=== PATIENT | female | born 1965 | race Two or more races ===

== ENCOUNTER 2019-07-11 13:59 | Inpatient (IN) | payer BC ==
[~2019-07-11] VITALS: Ht 165.1 cm; Wt 62.6 kg
--- NOTE | 2019-07-11 14:44 | NUR ---
PT STATES ON FRIDAY SHE STARTED DEVELOPING ERYTHEMA/BUMPS RIGHT BREAST, RIGHT PELVIC AREA, RIGHT LABIA, RIGHT THIGH
--- NOTE | 2019-07-11 15:45 | NUR ---
WHILE PA AT BEDSIDE, PULSE CHECKED AND NOTED TO BE 79
--- NOTE | 2019-07-11 15:45 | NUR ---
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
[2019-07-11] MEDS ORDERED: CLINDAMYCIN PMX 600MG/50ML 50 ML IV ONE (16:00)
[2019-07-11 16:05] LABS: BASOPHILS # (AUTO) 0.01 x10^3/uL (0-0.1); BASOPHILS % (AUTO) 0 % (0-1); EOSINOPHILS # (AUTO) 0.05 x10^3/uL (0-0.4); EOSINOPHILS % (AUTO) 0 % (1-7); LYMPHOCYTES # (AUTO) 1.34 x10^3/uL (1-3.4); LYMPHOCYTES % (AUTO) 11 % (22-44); MD NO; MEAN CORPUSCULAR HEMOGLOBIN 32.2 pg (27.0-34.8); MEAN CORPUSCULAR HGB CONC 34.1 g/dL (32.4-35.8); MEAN CORPUSCULAR VOLUME 94.6 fL (80-100); MEAN PLATELET VOLUME 8.3 fL (7.4-10.4); MONOCYTES # (AUTO) 0.63 x10^3/uL (0.2-0.8); MONOCYTES % (AUTO) 5 % (2-9); NEUTROPHILS # (AUTO) 10.37 x10^3/uL (1.8-6.8); NEUTROPHILS % (AUTO) 84 % (42-75); PLATELET COUNT 195 x10^3/uL (130-400); RED BLOOD COUNT 4.61 x10^6/uL (3.82-5.3); RED CELL DISTRIBUTION WIDTH 12.6 % (9.6-15.2)
[2019-07-11] MEDS ORDERED: CLINDAMYCIN PMX 600MG/50ML 50 ML ONE (16:12)
[2019-07-11 16:15] LABS: ALBUMIN 3.7 g/dL (3.4-5.0); ANION GAP 8 mmol/L (5-15); CALCIUM 8.8 mg/dL (8.5-10.1); CHLORIDE 107 mmol/L (98-107); CREATININE 1.17 mg/dL (0.55-1.02)
--- NOTE | 2019-07-11 16:21 | NUR ---
IV ESTABLISHED WITH ANTIBIOTICS INFUSING
[2019-07-11] MEDS ORDERED: METRONIDAZOLE PMX 500MG/100ML 100 ML ONE (17:12)
[2019-07-11] MEDS: METRONIDAZOLE PMX 500MG/100ML 100 ML IV ONE ×2 (17:24→17:25)
--- NOTE | 2019-07-11 18:07 | NUR ---
MD AWARE OF CURRENT BP AND ORDER RECEIVED FOR IV BOLUS. INFUSING NOTED ON THE MAR
--- NOTE | 2019-07-11 18:07 | NUR ---
POTENTIAL OF SEPSIS DISCUSSED WITH MD WITH ORDERS RECEIVED FOR LACTIC, BLOOD CULTURES AND IV FLUIDS.
--- NOTE | 2019-07-11 18:20 | NUR ---
PROVIDER DISCUSSING WITH PT ADMISSION TO HOSPITAL FOR SEPSIS PROTOCOL. PT AGREES TO SAME
[2019-07-11] MEDS ORDERED: SODIUM CHLORIDE 0.9% 1,000ML IVBOLUS ONE ×3 (18:30→19:00)
--- NOTE | 2019-07-11 18:59 | NUR ---
Pt report from Roma kearney. This rn to assume care of pt. NS to be hung per emar.
[2019-07-11] MEDS ORDERED: CEFTRIAXONE PMX 1GM/50ML 50 ML ONE (19:10)
[2019-07-11] MEDS ORDERED: CEFTRIAXONE PMX 1GM/50ML 50 ML IV ONE (19:30)
[2019-07-11] MEDS ORDERED: SODIUM CHLORIDE 0.9%, 500ML IVBOLUS ONE (20:00)
[2019-07-11] MEDS ORDERED: VANCOMYCIN PER PHARMACY MC PRN (20:00)
[2019-07-11] MEDS ORDERED: DOCUSATE 100 MG CAPSULE PO PRN (20:00)
[2019-07-11] MEDS ORDERED: ACETAMINOPHEN 325 MG TABLET PO PRN (20:00)
[2019-07-11] MEDS ORDERED: VANCOMYCIN PMX 1GM/200ML 200 ML IV ONE (20:00)
[2019-07-11] MEDS ORDERED: ONDANSETRON 2MG/ML, 2ML IVPush PRN (20:00)
[2019-07-11] MEDS ORDERED: POLYETHYLENE GLYCOL 17 GM PACKET PO PRN (20:00)
[2019-07-11] MEDS ORDERED: PROMETHAZINE 25 MG/ML, 1ML IM PRN (20:00)
[2019-07-11] MEDS ORDERED: BISACODYL 10 MG SUPP PR PRN (20:00)
[2019-07-11 20:30] VITALS: BP 96/65
[2019-07-11] MEDS ORDERED: PHARMACOKINETIC CONSULTATION MC ONE (22:00)
[2019-07-11] MEDS ORDERED: VANCOMYCIN 1,200 MG in SODIUM CHLORIDE 0.9% 250 ML IV SCH (22:00)
[2019-07-11] MEDS ORDERED: PHARMACOKINETIC MONITORING MC PRN (22:00)
[2019-07-11] MEDS: LACTOBACILLUS CHEW TABLET PO SCH (23:07)
[2019-07-11] MEDS: ENOXAPARIN 40 MG/0.4 ML SQ SCH (23:08)
[2019-07-11] MEDS: PIPERACILLIN/TAZO/PMX 3.375GM 50 ML IV SCH (23:19)
[2019-07-11] MEDS: CLINDAMYCIN PMX 900MG/50ML 50 ML IV SCH (23:19)
[2019-07-11 23:41] VITALS: BP 96/65
[2019-07-11] MEDS: SODIUM CHLORIDE 0.9% 1,000 ML IV SCH (23:56)
[2019-07-12 02:15] VITALS: BP 97/62
[2019-07-12 05:14] LABS: ALANINE AMINOTRANSFERASE 16 U/L (12-78); ALBUMIN 2.7 g/dL (3.4-5.0); ANION GAP 5 mmol/L (5-15); CALCIUM 7.9 mg/dL (8.5-10.1); CHLORIDE 116 mmol/L (98-107); CREATININE 0.94 mg/dL (0.55-1.02)
[2019-07-12 05:17] LABS: ALKALINE PHOSPHATASE 53 U/L (45-117); BILIRUBIN,TOTAL 0.5 mg/dL (0.2-1.0); TOTAL PROTEIN 5.4 g/dL (6.4-8.2)
[2019-07-12 05:20] LABS: BASOPHILS # (AUTO) 0.05 x10^3/uL (0-0.1); BASOPHILS % (AUTO) 1 % (0-1); EOSINOPHILS # (AUTO) 0.15 x10^3/uL (0-0.4); EOSINOPHILS % (AUTO) 2 % (1-7); LYMPHOCYTES # (AUTO) 1.45 x10^3/uL (1-3.4); LYMPHOCYTES % (AUTO) 14 % (22-44); MD NO; MEAN CORPUSCULAR HEMOGLOBIN 32.7 pg (27.0-34.8); MEAN CORPUSCULAR HGB CONC 33.9 g/dL (32.4-35.8); MEAN CORPUSCULAR VOLUME 96.2 fL (80-100); MEAN PLATELET VOLUME 8.9 fL (7.4-10.4); MONOCYTES % (AUTO) 5 % (2-9); NEUTROPHILS # (AUTO) 8.06 x10^3/uL (1.8-6.8); NEUTROPHILS % (AUTO) 79 % (42-75); PLATELET COUNT 163 x10^3/uL (130-400); RED BLOOD COUNT 3.78 x10^6/uL (3.82-5.3); RED CELL DISTRIBUTION WIDTH 12.9 % (9.6-15.2)
[2019-07-12] MEDS: LACTOBACILLUS CHEW TABLET PO SCH ×4 (05:45→20:13)
[2019-07-12] MEDS: PIPERACILLIN/TAZO/PMX 3.375GM 50 ML IV SCH ×4 (05:45→23:13)
[2019-07-12] MEDS: CLINDAMYCIN PMX 900MG/50ML 50 ML IV SCH ×2 (06:27→16:34)
[2019-07-12] MEDS: SODIUM CHLORIDE 0.9% 1,000 ML IV SCH (06:27)
[2019-07-12 07:27] VITALS: BP 105/69
[2019-07-12] MEDS: D5%-0.45NACL+KCL 20MEQ 1,000 ML IV SCH ×2 (09:17→20:13)
[2019-07-12 13:14] VITALS: BP 98/65
[2019-07-12] MEDS ORDERED: OMNIPAQUE 350 MG/ML, 100ML BOTTLE ONE (15:30)
[2019-07-12] MEDS: VANCOMYCIN 1,200 MG in SODIUM CHLORIDE 0.9% 250 ML IV SCH (18:31)
[2019-07-12 20:04] VITALS: BP 95/62
[2019-07-12] MEDS: ENOXAPARIN 40 MG/0.4 ML SQ SCH (20:13)
[2019-07-13 03:30] VITALS: BP 91/63
[2019-07-13] MEDS: PIPERACILLIN/TAZO/PMX 3.375GM 50 ML IV SCH ×2 (05:29→10:05)
[2019-07-13] MEDS: LACTOBACILLUS CHEW TABLET PO SCH ×2 (05:30→10:04)
[2019-07-13 06:05] LABS: BASOPHILS # (AUTO) 0.04 x10^3/uL (0-0.1); BASOPHILS % (AUTO) 1 % (0-1); EOSINOPHILS # (AUTO) 0.11 x10^3/uL (0-0.4); EOSINOPHILS % (AUTO) 1 % (1-7); LYMPHOCYTES # (AUTO) 1.45 x10^3/uL (1-3.4); LYMPHOCYTES % (AUTO) 18 % (22-44); MD NO; MEAN CORPUSCULAR HEMOGLOBIN 32.4 pg (27.0-34.8); MEAN CORPUSCULAR HGB CONC 33.5 g/dL (32.4-35.8); MEAN CORPUSCULAR VOLUME 96.8 fL (80-100); MONOCYTES # (AUTO) 0.53 x10^3/uL (0.2-0.8); MONOCYTES % (AUTO) 6 % (2-9); NEUTROPHILS # (AUTO) 6.09 x10^3/uL (1.8-6.8); NEUTROPHILS % (AUTO) 74 % (42-75); PLATELET COUNT 169 x10^3/uL (130-400); RED BLOOD COUNT 3.83 x10^6/uL (3.82-5.3); RED CELL DISTRIBUTION WIDTH 12.9 % (9.6-15.2)
[2019-07-13 06:16] LABS: ANION GAP 5 mmol/L (5-15); CALCIUM 8.5 mg/dL (8.5-10.1); CHLORIDE 109 mmol/L (98-107)
[2019-07-13 06:17] LABS: CREATININE 0.98 mg/dL (0.55-1.02)
[2019-07-13 07:32] VITALS: BP 90/59
[2019-07-13] MEDS: D5%-0.45NACL+KCL 20MEQ 1,000 ML IV SCH (10:05)
[2019-07-13] MEDS ORDERED: SULF1TAB24 PO (11:11)
[2019-07-13] MEDS: VANCOMYCIN 1,200 MG in SODIUM CHLORIDE 0.9% 250 ML IV SCH (12:00)
== END 2019-07-13 12:15 | disposition home or self-care (01) | DRG 871 ==
LOC: ED 17:10 → EDIP 19:01 → SUATTDRO 19:35 → 3N 21:00 → DCLOUNGE 07-13 12:05
PROVIDERS: ADMIT Internal Medicine; ATTEND Internal Medicine
DX: A41.9 Sepsis, unspecified organism (principal); R65.21 Severe sepsis with septic shock; E87.8 Other disorders of electrolyte and fluid balance, not elsewhere classified; F17.200 Nicotine dependence, unspecified, uncomplicated; I10 Essential (primary) hypertension; N64.4 Mastodynia; N76.2 Acute vulvitis; Z80.1 Family history of malignant neoplasm of trachea, bronchus and lung; Z90.710 Acquired absence of both cervix and uterus; Z90.49 Acquired absence of other specified parts of digestive tract
CPT/HCPCS: 36415; 72193; 80048; 80053; 85025; G0378; J0696; J1650; J2543; J3370; Q9967; J3480; J7030; J7040; J7050